=== PATIENT | male | born 1995 | race African-American/Black ===

== ENCOUNTER 2020-03-18 16:22 | Emergency (ER) | payer OTHER, SELFPAY ==
[2020-03-18 16:37] VITALS: BP 146/87; PULSE 80; RESP 16; TEMP 36.9; O2SAT 99
--- NOTE | 2020-03-18 16:38 | ED.SKABFB ---
HPI - Skin/Abscess/Foreign Bdy General Chief complaint: Skin/Abscess/Foreign Body Stated complaint: Scalp problems Time Seen by Provider: 03/18/20 16:38 Source: patient and RN notes reviewed History of Present Illness HPI narrative: Patient is a 24-year-old male who presents the urgent care with complaints of an itchy painful scalp. Patient states he has a history of folliculitis and knows exactly what causes it. Patient states that he has a hairbrush that he uses weekly to keep his hair curly . And he did not wash it appropriately this past week prior to using it. Patient states he now has the painful draining bumps to the scalp. Patient states that he called the [facility] hotline that would not prescribe him the oral antibiotic and the cream does not work. Patient denies of any other acute complaints. No acute distress noted. Patient read the plan of care. Related Data Allergies Allergy/AdvReac Type Severity Reaction Status Date / Time Penicillins Allergy Hives Verified 03/18/20 16:42 Review of Systems Review of Systems: Narrative: CONSTITUTIONAL: Denies fever, chills, or sweats. EYES: Denies visual changes, redness, or discharge. ENT: Denies rhinorrhea, congestion, sore throat, or otalgia. CARDIOVASCULAR: Denies chest pain, palpitations, or edema. RESPIRATORY: Denies cough or dyspnea. GASTROINTESTINAL: Denies abdominal pain, nausea, vomiting, or diarrhea. GENITOURINARY: Denies dysuria or hematuria. SKIN: Reports of itchy painful folliculitis to the scalp MUSCULOSKELETAL: Denies back pain, joint pain, or myalgia. NEUROLOGIC: Denies headache, numbness, or weakness. All other systems reviewed are negative, except as documented in HPI. [facility] Social History Social History Gender identity (if verbalized by the patient): Male Comments At the time of my signature, I reviewed and agree with the nursing past medical, surgical, social, and family history. There is no relevant family history pertinent to the patient complaint. Exam Narrative: Exam Narrative: GENERAL: This is a well-nourished, well-developed patient, in no apparent distress. HEAD: normocephalic, atraumatic. EYES: PERRL. Sclera clear/white. Vision is grossly intact. EARS: External ears normal NOSE: External nose normal with no obvious nasal discharge, nares without redness, no rhinorrhea. THROAT: Mucous membranes moist NECK: Neck supple SKIN: Notable scattered areas of folliculitis throughout the scalp with slight white to yellow drainage. Warm, intact with no suspicious lesions or rash, good texture and turgor. NEURO: awake, alert, and oriented to person, place and time. There were no obvious focal neurologic abnormalities. EXTREMITIES: No clubbing, cyanosis, or edema. Course Vital Signs Vital signs: Vital Signs Temperature 98.5 F 03/18/20 16:37 Pulse Rate 80 03/18/20 16:37 Respiratory Rate 16 03/18/20 16:37 Blood Pressure 146/87 H 03/18/20 16:37 Pulse Oximetry 99 03/18/20 16:37 Temperature 98.5 F 03/18/20 16:37 Pulse Rate 80 03/18/20 16:37 Respiratory Rate 16 03/18/20 16:37 Blood Pressure 146/87 H 03/18/20 16:37 Pulse Oximetry 99 03/18/20 16:37 Reviewed?patient is informed that they may have pre-hypertension or hypertension based on a blood pressure reading in the department. I recommend the patient call the primary care provider listed on their discharge instructions or a physician of their choice this week to arrange follow-up for further evaluation of possible pre-hypertension or hypertension. MDM - Skin/Abscess/Foreign Bdy MDM Narrative Medical decision making narrative: Advised the patient not to squeeze or scratch at the areas. Use the prescription shampoo as directed. Complete the oral antibiotic regimen as prescribed. Make sure to eat and drink with medication. Increase water intake. Explained to the patient that oral antibiotics are typically not the route of treatment. Advised the patient to correctly disinfect h
== END 2020-03-18 17:09 | disposition home or self-care (01) ==
PROVIDERS: Emergency Provider Nurse Practitioner Family
DX: L73.9 Follicular disorder, unspecified (principal)
CPT/HCPCS: 99203; G0463

== ENCOUNTER 2021-06-29 08:55 | Emergency (ER) | payer OTHER, SELFPAY ==
--- NOTE | ~2021-06-29 | XR_ITS ---
EXAMINATION: XR chest 2V DATE: 06/29/2021 09:08 INDICATION: Midsternal chest pain. TECHNIQUE: Frontal and lateral views of the chest were obtained. COMPARISON: None. FINDINGS: The chest demonstrates clear lungs without pneumonia, pleural effusion, or pneumothorax. Th e heart size is normal. IMPRESSION: 1. No acute cardiopulmonary disease. Reviewed, dictated and finalized at location A. [employer]
--- NOTE | 2021-06-29 08:58 | ECG_ITS ---
Measurements Intervals [place] Rate: 81 P: 116 MA: 170 QRS: 160 QRSD: 84 T: 135 QT: 349 QTc: 405 Interpretive Statements SINUS RHYTHM ARM LEADS REVERSED INCOMPLETE RIGHT BUNDLE BRANCH BLOCK BORDERLINE ECG Electronically Signed On 06-29-2021 12:12:07 [employer] by Brad Spivey D.O.
[2021-06-29 09:05] VITALS: BP 134/81; PULSE 91; RESP 18; TEMP 36.2; O2SAT 98
[2021-06-29 09:31] LABS: Basophils Absolute Auto 0.1 K/mm3 (0.0-0.1); Basophils Percent Auto 0.6 % (0.2-1.2); Eosinophils Absolute Auto 0.2 K/mm3 (0-0.3); Eosinophils Percent Auto 1.8 % (0-4.4); Hematocrit 43.6 % (42.0-52.0); Hemoglobin 14.5 g/dL (14.0-18.0); Immature Granulocyte Absolute 0.02 K/mm3 (0.00-0.031); Immature Granulocyte Percent A 0.2 % (0-0.5); Lymphocytes Absolute Auto 3.73 K/mm3 (0.9-3.2); Lymphocytes Percent Auto 36.6 % (18.3-44.2); Mean Corpuscular HGB Conc 33.3 g/dl (32-36); Mean Corpuscular Hemoglobin 30.3 pg (26-34); Monocytes Absolute Auto 0.7 K/mm3 (0.1-0.6); Monocytes Percent Auto 6.5 % (2.6-8.5); Neutrophils Absolute Auto 5.5 K/mm3 (1.3-6.7); Neutrophils Percent Auto 54.3 % (45.5-73.1); Platelet Count Result 287 k/mm3 (150-375); Red Blood Count 4.79 M/mm3 (4.6-6.20); Red Cell Distribution Width 12.6 % (11.5-14.5); White Blood Count 10.2 K/mm3 (4.5-10.0)
[2021-06-29 09:36] LABS: Alanine Aminotransferase 26 U/L (4-50); Albumin Level 4.6 g/dL (3.5-5.1); Alkaline Phosphatase 58 U/L (38-126); Anion Gap 11 mmol/L (8-16); Aspartate Amino Transferase 32 U/L (17-59); Bilirubin,Total 0.7 mg/dL (0.2-1.3); Blood Urea Nitrogen 14 mg/dL (9-20); Calcium 9.1 mg/dL (8.4-10.2); Carbon Dioxide 25 mmol/L (22-30); Chloride 103 mmol/L (98-107); Estimated CRCL calculation 91 ml/min; Estimated Glomerular Filt Rate > 60; Glucose 104 mg/dL (65-110); Lipase 88 U/L (23-300); Potassium 3.7 mmol/L (3.4-5.0); Sodium 139 mmol/L (137-145)
[2021-06-29 09:39] LABS: INR 1.1; Partial Thromboplastin Time 31.4 SECONDS (22.3-36.8); Prothrombin Time 14.2 Seconds (11.1-14.7)
[2021-06-29 09:49] LABS: Troponin I < 0.012 ng/mL (0.000-0.034)
[2021-06-29 10:50] VITALS: BP 124/93; PULSE 73; RESP 18; O2SAT 99
--- NOTE | 2021-06-29 10:55 | ED.CHESTPAIN ---
HPI - Chest Pain General Chief Complaint: Chest Pain <AIDAN Elizondo Last Filed: 06/29/21 13:27> Stated Complaint: CHEST PAIN X3D NEG COVID TEST <AIDAN Elizondo Last Filed: 06/29/21 13:27> Time Seen by Provider: 06/29/21 10:53 <AIDAN Elizondo Last Filed: 06/29/21 13:27> Source: patient <AIDAN Elizondo Last Filed: 06/29/21 13:27> Mode of arrival: ambulatory <AIDAN Elizondo Last Filed: 06/29/21 13:27> Limitations: no limitations <AIDAN Elizondo Last Filed: 06/29/21 13:27> History of Present Illness HPI narrative: This is a 26 year old male that presents to the ER for chest pain present over the last 3 days. Reports a recent viral illness. Reports he has had cough and congestion over the last couple of weeks. He did get tested for COVID which was negative. He is not vaccinated. Reports most of his symptoms have resolved, but he is still having dull achy chest pain which is constant. He did take Tylenol for this with some relief. Denies fever or shortness of breath. <AIDAN Elizondo Last Filed: 06/29/21 13:27> Related Data Home Medications: Home Medications Medication Instructions Recorded Confirmed No Home Medications 06/29/21 06/29/21 <AIDAN Elizondo Last Filed: 06/29/21 13:27> Allergies/Adverse Reactions: Allergies Allergy/AdvReac Type Severity Reaction Status Date / Time Penicillins Allergy Hives Verified 06/29/21 10:54 <AIDAN Elizondo Last Filed: 06/29/21 13:27> Review of Systems Review of Systems: CONSTITUTIONAL: Denies fever ENT: Reports congestion CARDIOVASCULAR: Reports chest pain. Denies edema. RESPIRATORY: Reports cough. Denies dyspnea. <AIDAN Elizondo Last Filed: 06/29/21 13:27> All systems reviewed & are unremarkable except as noted in HPI and below <Carmen Reynaga PA-C - Last Filed: 06/29/21 13:27> [facility] Past Medical History Medical History: Medical History (Updated 06/29/21 @ 13:27 by Carmen Reynaga PA-C) No active medical problems <Carmen Reynaga PA-C - Last Filed: 06/29/21 13:27> Social History Social History: Social History (Updated 06/29/21 @ 11:13 by Carmen Reynaga PA-C) Smoking status: Never smoker Gender identity (if verbalized by the patient): Male <Carmen Reynaga PA-C - Last Filed: 06/29/21 13:27> Exam Narrative: GENERAL: Well-appearing, well-nourished, and in no acute distress. HEAD: Normocephalic, atraumatic. EYES: EOMI. ENT: Nares clear, no rhinorrhea or epistaxis. Mucous membranes moist. Oropharynx without tonsillar hypertrophy exudate or other lesions. NECK: Supple. No adenopathy or masses. CHEST: Clear to auscultation. No respiratory distress. No wheezes rales or rhonchi HEART: Regular rate and rhythm. No murmur heard. Normal peripheral pulses. EXTREMITIES: Normal range of motion. No edema. SKIN: Warm, dry, no rash. NEURO: No focal deficits. Alert and oriented x3. PSYCH: Normal mood and affect <Carmen Reynaga PA-C - Last Filed: 06/29/21 13:27> Course Vital Signs Vital signs: Vital Signs Temperature 97.2 F L 06/29/21 09:05 Pulse Rate 91 06/29/21 09:05 Respiratory Rate 18 06/29/21 09:05 Blood Pressure 134/81 06/29/21 09:05 Pulse Oximetry 98 06/29/21 09:05 Temperature 97.2 F L 06/29/21 09:05 Pulse Rate 71 06/29/21 13:35 Respiratory Rate 16 06/29/21 13:35 Blood Pressure 127/89 06/29/21 13:35 Pulse Oximetry 100 06/29/21 13:35 <Carmen Reynaga PA-C - Last Filed: 06/29/21 13:27> MDM - Chest Pain MDM Narrative Medical decision making narrative: Patient presents to the emergency department for chest pain ongoing over the last couple of days. He is afebrile and nontoxic-appearing. His vitals are stable. CBC with mild leukocytosis to 10.2. Metabolic panel without concerning findings. EKG without acute ST changes. His baseline and 3-hour tropo
[2021-06-29] MEDS: KETOROLAC 30 MG/ML VIAL (*BKC) IV PUSH (11:16)
[2021-06-29 11:52] LABS: D Dimer 0.27 ug/mL (<0.48)
[2021-06-29 12:37] LABS: Troponin I < 0.012 ng/mL (0.000-0.034)
[2021-06-29 13:35] VITALS: BP 127/89; PULSE 71; RESP 16; O2SAT 100
== END 2021-06-29 13:36 | disposition home or self-care (01) ==
PROVIDERS: Physician Assistant; Emergency Provider General Practice
DX: R07.89 Other chest pain (principal)
CPT/HCPCS: 36415; 71046; 80053; 83690; 84484; 85025; 85380; 85610; 85730; 93005; 96374; 99284; J1885